=== PATIENT | male | born 1950 | race Hispanic/Latino ===

== ENCOUNTER 2017-02-09 13:15 | Emergency (ER) | payer BC, OTHER ==
[2017-02-09] MEDS ORDERED: Adacel (T-DAP) 0.5 ML VIAL ONE (13:30)
--- NOTE | 2017-02-09 13:47 | RAD ---
TWO VIEWS CHEST: Comparison: Chest pain after injury. FINDINGS: Two views of the chest show normal sized cardiomediastinal silhouette. There is no evidence of conso lidation, mass, or pleural effusion. The bones are unremarkable. IMPRESSION: No evidence of acute cardiopulmonary disease. POS: [facility]
--- NOTE | 2017-02-09 14:02 | RAD ---
TWO VIEWS OF THE TIBIA AND FIBULA: Comparison: None. History: Injury after landing on his back while attempting to trim a tree branch on a roof. FINDINGS: Two views of the left tibia/fibula shows no evidence of acute fracture or dislocation. Mild diffuse soft tissue swelling is seen. No radiopaque foreign body is present. No degenerative changes are see n. IMPRESSION: No evidence of acute osseous abnormality. POS: [facility]
== END 2017-02-09 14:26 | disposition home or self-care (01) ==
LOC: NAV ERS 13:15
DX: S80.12XA Contusion of left lower leg, initial encounter (principal); S30.811A Abrasion of abdominal wall, initial encounter; W19.XXXA Unspecified fall, initial encounter
CPT/HCPCS: 71020; 90471; 90715; G0390

== ENCOUNTER 2020-07-17 20:55 | Emergency (ER) | payer BC ==
[2020-07-17] MEDS ORDERED: methylPREDNISolone Acetate 40 mg/ml Vial ONE (21:33)
== END 2020-07-17 22:00 | disposition home or self-care (01) ==
LOC: NAV ERS 20:55
DX: U07.1 COVID-19 (principal); R55 Syncope and collapse
CPT/HCPCS: 96372; 99283; J2920

== ENCOUNTER 2020-07-18 05:13 | Emergency (ER) | payer BC ==
[2020-07-18] MEDS ORDERED: Naloxone HCl 0.4 mg/ml Vial ONE (05:22)
[2020-07-18] MEDS ORDERED: Midazolam HCl 2 mg/2 ml Vial ONE ×2 (05:33→06:32)
[2020-07-18 05:41] LABS: #Lymphocytes 1.2 thou/uL (1.20-3.40); #Monocytes 0.4 thou/uL (0.11-0.59); #Neutrophils 7.6 thou/uL (1.40-6.50); %Basophils 0.2 % (0.0-1.0); %Eosinophils 0.1 % (0.0-10.0); %Lymphocytes 13.4 % (21.0-51.0); %Monocytes 4.3 % (0.0-10.0); Hemoglobin 15.2 g/dL (14.0-18.0); Mean Corpuscular HGB CONC 33.6 g/dL (32.0-36.0); Mean Corpuscular Hemoglobin 31.4 pg (27.0-31.0); Mean Corpuscular Volume 93.4 fL (78.0-98.0); Mean Platelet Volume 9.1 fL (7.4-10.4); Platelet Count 227 thou/uL (130-400); RBC Distribution Width 11.2 % (11.5-14.5); Red Blood Cell (RBC) Count 4.83 mill/uL (4.70-6.10); White Blood Cell (WBC) Count 9.2 thou/uL (4.8-10.8)
[2020-07-18 05:58] LABS: Acetaminophen Less than 6.0 mcg/mL (10.0-30.0); Alcohol Less than 10 mg/dL (Less than 10); Salicylate Less than 8.0 mg/dL (15.0-30.0)
[2020-07-18] MEDS ORDERED: Fentanyl 100 MCG/2 ML VIAL ONE (06:02)
[2020-07-18 06:14] LABS: Bilirubin Small (Negative); Blood, Urine Trace (Negative); Clarity Clear (Clear); Glucose, Urine (Dipstick) Negative (Negative); Ketone, Urine 15 mg/dL (Negative); Leukocyte Negative (Negative); Nitrite Negative (Negative); Protein, Urine (Dipstick) 30 mg/dL (Neg-Trace); Specific Gravity, Urine 1.037 (1.002-1.036)
[2020-07-18 06:21] LABS: Albumin 3.3 g/dL (3.4-4.8); Anion Gap 16 mmol/L (10-20); BUN (Urea Nitrogen) 13 mg/dL (8.4-25.7); Bilirubin, Total 0.4 mg/dL (0.2-1.2); Calc. Creatinine Clearance 0 mL/min (70-130); Calcium 8.4 mg/dL (7.8-10.44); Carbon Dioxide 19 mmol/L (23-31); Chloride 107 mmol/L (98-107); Globulin 4.2 g/dL (2.4-3.5); Glucose 175 mg/dL (80-115); Potassium 4.2 mmol/L (3.5-5.1); Protein, Total 7.5 g/dL (5.8-8.1); Sodium 138 mmol/L (136-145)
[2020-07-18 06:22] LABS: ALT (SGPT) 43 U/L (8-55); AST (SGOT) 23 U/L (5-34); Alkaline Phosphatase 92 U/L (40-110); Lipase 36 U/L (8-78)
[2020-07-18 06:22] LABS: Bacteria/HPF 1+ HPF (None Seen); Mucous/LPF 4+ LPF (<2+)
[2020-07-18 06:23] LABS: Amphetamine Not Detected (NotDetected); Barbiturates Screen Not Detected (NotDetected); Benzodiazepine Screen Not Detected (NotDetected); Cocaine Metabolite Screen Not Detected (NotDetected); Medtox Control Line Valid? VALID (VALID); Methadone Not Detected (NotDetected); Methamphetamine Not Detected (NotDetected); Opiate Screen Not Detected (NotDetected); Oxycodone Screen Not Detected (NotDetected); Phencyclidine (PCP) Not Detected (NotDetected); THC/Cannabinoid Screen Not Detected (NotDetected); Tricyclic Screen Not Detected (NotDetected)
[2020-07-18] MEDS ORDERED: Midazolam HCl 5 mg/ml Vial ONE (06:52)
--- NOTE | 2020-07-18 07:53 | RAD ---
EXAM: Single view of the chest HISTORY: Altered mental status with unresponsiveness COMPARISON: 02/09/2017 FINDINGS: Single view of the chest shows an enlarged but stable cardiomediastinal silhouette. An end otracheal tube is seen with its tip approximately 1.7 cm from the mary. This is slightly withdrawn on a subsequent radiograph where it appears in good position. Scattered multifocal opacitie s are seen in the lungs. No acute osseous abnormality. IMPRESSION: Scattered multifocal infiltrates
--- NOTE | 2020-07-18 08:45 | CT ---
CT OF THE BRAIN WITHOUT CONTRAST: INDICATION: History of unresponsiveness and altered mental status. COMPARISON: None. FINDINGS: The septum pellucidum and third ventricle are midline. There is an oval density seen within the left cerebellar hemisphere, severely hypodense, suspicious for a remote left cerebellar hemisphere lacuna r infarct. No definite acute infarct, hemorrhage, or hydrocephalus is present. Septum pellucidum an d third ventricle are midline. There is a defect involving the left medial orbital wall which can be related to congenital dehiscence or remote trauma. There is mucosal thickening with the ethmoid air cells. There is a mucous retention cyst within the right maxillary sinus. Mastoid air cells are cl ear. IMPRESSION: 1. Small oval hypodensity within the left cerebellar hemisphere suspicious for a remote lacunar infa rct involving the left cerebellum. 2. No definite acute intracranial abnormality. 3. Mild paranasal sinus disease. POS: [facility]
[2020-07-18] MEDS ORDERED: Iopamidol 370 76% 100 ML VIAL ONE (09:00)
--- NOTE | 2020-07-18 09:08 | CT ---
CTA OF THE THORAX UTILIZING IV CONTRAST AND PE PROTOCOL AND 3D REFORMATTED IMAGING: INDICATION: History of cough, altered mental status, and unresponsiveness. FINDINGS: The patient is intubated with gastric catheter placement. The gastric catheter is seen within the g astric cardia. There is a peripheral airspace opacity suspicious for changes of COVID pneumonia. There are some are as of subsegmental volume loss in both lower lobes. No definite central or segmental pulmonary embolus is evident. No enlarged lymph nodes are grossly evident. The visualized upper abdomen demonstrates normal-appearing adrenal glands. There is a calcific densi ty seen within Morison's pouch which is nonspecific. The gallbladder is within normal limits. The l iver is within normal limits. Visualized spleen is unremarkable-appearing. No acute osseous abnorma lity is evident. IMPRESSION: 1. No central or segmental pulmonary embolus demonstrated. 2. Bilateral peripheral airspace opacity suspicious for atypical pneumonia which can be seen with CO VID infections. 3. No definite acute abnormality within the upper abdomen. There is a calcified 9 mm body within Mo rison's pouch that may reflect small area of fat necrosis or possibly a small granuloma. POS: [facility]
== END 2020-07-18 07:19 | disposition short-term general hospital (02) ==
LOC: NAV ERS 05:13
DX: U07.1 COVID-19 (principal); R41.82 Altered mental status, unspecified; Z79.51 Long term (current) use of inhaled steroids; Z79.899 Other long term (current) drug therapy
CPT/HCPCS: 31500; 36415; 51702; 70450; 71045; 71275; 80053; 80306; 80307; 81003; 81015; 83605; 83690; 83880; 84484; 85025; 85379; 87040; 93005; 96361; 96374; 96375; 96376; J2250; J2310; J3010; Q9967